=== PATIENT | male | born 1970 | race Caucasian/White ===

== ENCOUNTER 2017-08-11 07:22 | Emergency (ER) | payer OTHER ==
[2017-08-11 07:29] VITALS: TEMP 97.5
[2017-08-11] MEDS ORDERED: PROPARACAINE 0.5% 15 ML OPHT DROP ONE (07:55)
[2017-08-11] MEDS ORDERED: FLUORESCEIN SODIUM 1 MG STRIP OP ONE (07:55)
--- NOTE | 2017-08-11 07:56 | EDPHY ---
H & P Time Seen by Provider: 08/11/17 07:48 HPI/ROS: CHIEF COMPLAINT: Eye pain secondary to hydrated [place] spray HISTORY OF PRESENT ILLNESS: The patient is a 47 y/o male complaining of eye pain secondary to hydrated [place] spraying into his eyes around 03:30, 4 hours ago. The [place] did get on his skin and hair, but he believed he was washed most of this off. He did not have protective glasses on. He flushed his eyes shortly after the spray and continued to wash them every 5 minutes for 30 seconds, for a total of 7-8 times. His left eye has cloudy vision and is irritated, his right eye is only irritated. He is also complaining of a headache. Denies wearing contact lenses, fever, paresthesias, shortness of breath or other pertinent symptoms. REVIEW OF SYSTEMS: Aside from elements discussed in the HPI, a comprehensive 10-point review of systems was reviewed and is negative. Past Medical/Surgical History: Rotator cuff surgery Social History: Works for [employer], lives in [place], nonsmoker Smoking Status: Never smoked Physical Exam: Visual Acuity: noted from Nurse's notes. Lids: no proptosis, no periorbital erythema or swelling, no vesicles Conjunctivae: Bilateral conjunctival erythema, no discharge Pupils: equal round and reactive to light EOMI Cornea: OD: no floursecein uptake. OS: oval and diagonally-oriented flourescein uptake from 3-6 o'clock position Anterior chamber: Clear, no hyphema pH: Left eye 8, right eye 8 Constitutional: Initial Vital Signs Temperature (C) 36.4 C 08/11/17 07:25 Heart Rate 77 08/11/17 07:25 Respiratory Rate 16 08/11/17 07:25 Blood Pressure 136/92 H 08/11/17 07:25 O2 Sat (%) 97 08/11/17 07:25 O2 Delivery Mode Room Air Allergies/Adverse Reactions: No Known Allergies Allergy (Unverified 08/11/17 07:29) Home Medications: Medication Instructions Recorded Ofloxacin 0.3% [Ocuflox 0.3% (RX)] 2 drops LEFTEYE Q6 #1 opht.btl 08/11/17 Medical Decision Making ED Course/Re-evaluation: The patient is a 47 y/o male presenting with bilateral conjunctival erythema and a pH level of 8 in his left eye and 7.5 in his right eye secondary to having hydrated [place] sprayed into his eyes at work. 0803: The patient states that his left eye vision is much clearer after the Proparacaine solution. He also notes the pain in both of his eyes as resolved after Alcaine. Eyes irrigated with NS. 0840: Reassessed patient, eye pH back to normal (7.5). 0938: Consulted with Dr. Moreno, regional production manager, he will see this patient this morning in his office. 0943: Reassessed patient and discussed eye exam findings. He will have a follow up visit with Dr. Moreno today. Return precautions provided; patient is comfortable with this plan. Differential Diagnosis: Differential diagnosis includes hyphema, acute iritis, traumatic mydriasis, corneal abrasion, globe rupture. - Data Points Medications Given: Discontinued Medications Acetaminophen (Tylenol) 650 mg PO EDNOW ONE Stop: 08/11/17 08:41 Last Admin: 08/11/17 08:51 Dose: 650 mg Departure - Departure Disposition: Home, Routine, Self-Care Clinical Impression: Chemical exposure of eye Condition: Good Instructions: Chemical Eye [place] (ED) Additional Instructions: Use Ocuflox as prescribed. Dr. Moreno, regional production manager, will see you in his office this morning Return to the ED if you experience worsening pain, vision loss, eye drainage or other worsening of your symptoms. Referrals: Lencho King MD [Primary Care Provider] - As per Instructions Jonathan Moreno MD [Medical Doctor] - As per Instructions Prescriptions: Ofloxacin 0.3% [Ocuflox 0.3% (RX)] 2 drops LEFTEYE Q6 #1 opht.btl Report Scribed for: Keya Castro Report Scribed by: Yecenia Connell Date of Report: 08/11/17 Time of Report: 07:56 Physician Review and Approval Statement: 08/11/17 07:56 Portions of this note were transcribed by a medical delivery driver. I personally performed a history, physical exam, medical decision making, and confirmed accuracy of information the transcribed note.
[2017-08-11] MEDS ORDERED: ACETAMINOPHEN 325 MG TAB PO ONE (08:40)
[2017-08-11 08:55] VITALS: BP 130/79; PULSE 55; RESP 18; O2SAT 94
== END 2017-08-11 09:53 | disposition home or self-care (01) ==
DX: Z77.098 Contact with and (suspected) exposure to other hazardous, chiefly nonmedicinal, chemicals (principal)